=== PATIENT | male | born 1955 | race Caucasian/White ===

== ENCOUNTER → 2023-05-17 14:21 | Outpatient (REF) | payer MEDICARE, OTHER, SELFPAY | LOC: HWRAD 14:21 | PROVIDERS: ATTENDING PHYSICIAN Family Medicine | DX: E78.00 Pure hypercholesterolemia, unspecified (principal); Z91.89 Other specified personal risk factors, not elsewhere classified | CPT/HCPCS: 75571 ==

== ENCOUNTER → 2023-12-20 13:06 | Outpatient (REF) | payer MEDICARE, OTHER, SELFPAY | LOC: RCS 13:06 | PROVIDERS: ATTENDING PHYSICIAN Internal Medicine; FAMILY PHYSICIAN Family Medicine | DX: R00.1 Bradycardia, unspecified (principal) | CPT/HCPCS: 93225; 93226 ==

== ENCOUNTER → 2023-12-28 16:09 | Outpatient (REF) | payer MEDICARE, OTHER, SELFPAY | LOC: RCS 16:09 | PROVIDERS: ATTENDING PHYSICIAN Internal Medicine; FAMILY PHYSICIAN Family Medicine | DX: R00.1 Bradycardia, unspecified (principal) | CPT/HCPCS: 93306 ==

== ENCOUNTER 2024-08-29 06:26 | Day surgery (SDC) | payer MEDICARE, OTHER, SELFPAY | END 2024-08-29 09:30 | disposition home or self-care (01) | LOC: GI 06:26 | PROVIDERS: ATTENDING PHYSICIAN Internal Medicine Gastroenterology | DX: K51.00 Ulcerative (chronic) pancolitis without complications (principal); K51.20 Ulcerative (chronic) proctitis without complications | CPT/HCPCS: 45380; 88305 ==

== ENCOUNTER 2024-10-31 10:03 | Inpatient (IN) | payer MEDICARE, OTHER, SELFPAY ==
[2024-10-31] VITALS (23 sets, daily range): BP systolic 91–156; BP diastolic 53–100; BMI 24.2; BMI 24.5
[2024-10-31 02:34] LABS: Hematocrit 45.2 % (39.0-52.0); Hemoglobin 15.8 g/dL (13.0-18.0); Mean Corp Hgb Conc. 35.0 g/dL (33.0-37.0); Mean Corpuscular Volume 97.4 fL (80.0-94.0); Nucleated Red Blood Cells % 0 % (-); Platelet Count 155 10^3/uL (130-400); Red Cell Dist. Width 14.3 % (11.5-14.5)
[2024-10-31 02:59] LABS: ALT (SGPT) 29 U/L (0-50); AST (SGOT) 30 U/L (17-59); Albumin 4.8 g/dl (3.5-5.0); Alkaline Phosphatase 94 U/L (38-126); Blood Urea Nitrogen 26 mg/dl (9-20); Calcium 9.7 mg/dl (8.4-10.2); Carbon Dioxide 25 mmol/L (22-30); Chloride 108 mmol/L (98-107); Glucose 133 mg/dl (70-99); Potassium 4.7 mmol/L (3.5-5.1); Sodium 141 mmol/L (135-145); Total Protein 7.5 g/dl (6.3-8.2); eGFR > 60.00
[2024-10-31 03:11] LABS: Troponin I 0.024 ng/ml
--- NOTE | 2024-10-31 04:58 | ED.GENMED ---
History of Present Illness
<Jessie Steen PA-C - Last Filed: 10/31/24 13:39>
General
Chief Complaint: Cardiac Symptoms
Source: patient
Exam Limitations: none
Time Seen by Provider: 10/31/24 04:27
Nursing documentation reviewed up to this point in time: agreed with
History of Present Illness
History of Present Illness:
Note:
CHIEF COMPLAINT(S)
Indigestion and elevated heart rate.
HISTORY OF PRESENT ILLNESS
The patient is a 69-year-old male with a history of controlled cholesterol and colitis. He presented with symptoms of indigestion and elevated heart rate. The patient reported feeling indigestion with some burning and burping, which he associated
with reflux. His usual blood pressure is 120/80 mm Hg, but he noted an increase recently, up to 138-140/82 mm Hg. The patient, who normally has bradycardia with resting heart rates around 42-44 beats per minute, is concerned about the recent
increase in heart rate. He mentioned a recent local steroid injection to his toe earlier in the day, which he speculated could be related to his symptoms. However, he was advised that this is unlikely to be the cause. A repeat EKG showed some
changes, including T wave inversions, and a detectable troponin level was noted although it was not significantly elevated. These findings raised concerns about a potential cardiac issue. It was decided to repeat the blood work and EKG to further
investigate this. The patient denies any current chest pain or shortness of breath.
PAST MEDICAL AND SURIGICAL HISTORY
1. Controlled cholesterol managed with a statin.
2. Colitis managed with sulfasalazine and mercaptopurine.
3. Has had a calcium scan indicating a score of 253 with some plaque formation.
CHRONIC MEDICAL CONDITIONS SIGNIFICANTLY AFFECTING CARE
1. Hypercholesterolemia.
2. Colitis.
FAMILY HISTORY
Both parents had pacemakers due to rhythm issues but no history of coronary artery disease.
SOCIAL HISTORY
- Alcohol: Consumes one to two drinks, two to three times a week
- Smoking: Denies smoking.
- Exercise: Minimal aerobic activity currently due to foot issues.
MEDICATIONS
1. Statin for hyperlipidemia.
2. Sulfasalazine for colitis.
3. Mercaptopurine (6-MP) for colitis.
REVIEW OF SYSTEMS
- Cardiovascular: Elevated heart rate, history of bradycardia, episodic elevated blood pressure.
- Gastrointestinal: Indigestion, burning sensation, frequent burping, reflux symptoms.
- Respiratory: Denies shortness of breath or chest pain.
PHYSICAL EXAM
General: Alert, no acute distress.
Skin: Warm, dry.
Head: Normocephalic, atraumatic.
Neck: Supple, trachea midline.
Eye Ears, nose, mouth and throat: Oral mucosa moist.
Cardiovascular: Normal peripheral perfusion, No edema. RRR no murmurs.
Respiratory: Respirations are non-labored.
Gastrointestinal: Abdomen nondistended
Back: Normal range of motion, Normal alignment.
Musculoskeletal: Normal range of motion, normal strength.
Neurological: Alert and oriented to person, place, time, and situation, No focal neurological deficit observed.
Psychiatric: Cooperative, appropriate mood & affect.
PROBLEM LIST
Acute:
1. Indigestion with elevated heart rate.
2. Abnormal EKG findings (T wave inversions) and detectable troponin level.
Chronic:
1. Hypercholesterolemia.
2. Colitis.
PLAN
1. Repeat EKG and blood work to monitor troponin levels.
2. Patient advised to follow up with turning machine operator helper to potentially reconsider blood pressure management.
3. Monitor symptoms and seek immediate care if chest discomfort or any new symptoms arise.
DIFFERENTIAL DIAGNOSIS
The Differential Diagnosis includes, in no particular order and is not limited to:
1. Gastroesophageal reflux disease (GERD).
2. Cardiac arrhythmia.
3. Myocardial ischemia.
4. Medication side effects.
5. Anxiety attack.
6. Pericarditis.
7. Aortic dissection.
8. Esophageal spasm.
9. Hypertensive emergency.
10. Gastritis.
EKG
My independent EKG interpretation is:
- Abnormalities: Concerns for lateral ischemia with T-wave inversions laterally and mild ST depression
- Repeat EKG Time: Not specified
- Rhythm: Rate 81 initial ecg, repeat sinus bradycardia rate [address] depressions
- [place]: Not specified
- Abnormalities: Right bundle branch block, previous changes no longer present
Disposition:
SUMMARY OF ENCOUNTER
A 69-year-old male presented to the emergency department with concerns of elevated heart rate and brief indigestion. He noted an episode of unusual hypertension for him. On examination, he was currently asymptomatic and without chest pain. An
initial EKG indicated potential ischemia, and the initial troponin level was 0.024 ng/mL. A repeat troponin level showed a delta of 0.033 ng/mL. Suspecting acute coronary syndrome, the findings were discussed with cardiology. The patient was seen by
the turning machine operator helper at the bedside and is likely to be taken to the supervisor laboratory later today. Management was initiated with heparin, aspirin, and topical nitroglycerin.
DISPOSITION
The patient is to undergo further intervention in the supervisor laboratory.
ASSESSMENT
Suspected acute coronary syndrome based on EKG findings and troponin levels.
EMERGENCY TREATMENTS ADMINISTERED
Heparin, aspirin, and topical nitroglycerin.
MANAGEMENT OF THE PATIENTS CARE WAS DISCUSSED WITH
Discussion with cardiology (Dr. Salas) regarding suspected acute coronary syndrome and further management.
INDEPENDENT REVIEW OF LABS AND INTERPRETATION OF TESTS
- My independent review of EKG shows concerning changes for ischemia.
- My independent review of cardiac biomarkers indicates initial troponin level of 0.024 ng/mL with a repeat delta of 0.033 ng/mL.
MEDICATION RECONCILIATION
- Heparin (administered)
- Aspirin (administered)
- Topical Nitroglycerin (administered)
MEDICAL DECISION MAKING
- Number and Complexity of Problems Addressed: Chronic conditions affecting care include hypercholesterolemia and colitis. Differential diagnosis includes acute coronary syndrome, myocardial ischemia, and potential cardiac arrhythmia.
- Data:
-Category 1: My independent interpretation of EKG indicates potential ischemia. Reviewed cardiac troponin levels with initial and repeat measurements provided.
-Category 3: Management discussions conducted with turning machine operator helper Dr. Salas regarding patients condition and further intervention in supervisor laboratory.
-Risk: Consideration of Admission/Observation: Escalation of care including potential admission for treatment of suspected acute coronary syndrome was considered, ensuring high-risk cardiac conditions are further evaluated and treated properly.
DIAGNOSIS
- Acute coronary syndrome, suspected (ICD-10: I20.0)
Phy Exam
<Jessie Steen PA-C - Last Filed: 10/31/24 13:39>
Physical Exam
Physical Exam:
see hpi
Course
<Jessie Steen PA-C - Last Filed: 10/31/24 13:39>
Orders/Labs/Results
Orders:
Orders
10/31/24 01:53
ECG [Electrocardiogram (*1)] Urgent
Reason for Study: Chest Pain
EKG- Treatment ONCE
10/31/24 02:11
Complete Blood Count/With Diff Urgent
Comprehensive Metabolic Panel Urgent
Troponin I Urgent
10/31/24 05:00
Electrocardiogram (*1) Urgent
Reason for Study: Chest Pain
10/31/24 05:14
Troponin I Urgent
10/31/24 Breakfast
NPO
Allow oral meds: Yes
Allow clear liquids: No
10/31/24 06:32
Heparin 4,000 units IV NOW STA
Nursing to Place Non Medication Order As Directed
Physician Order: PTT 6 hours after initial start of Heparin infusion
Above order entered?: Yes
10/31/24 06:45
Heparin 12062 Units/250 ml 25,000 units in 250 ml IV PER PROTOCOL
Weight to be used for heparin protocol in kilograms (kg):: 74.389
Protocol:: Cardiac Tx/Acute Coronary
PTT Goal Range to be used:: PTT 73 to 111 seconds
Order type:: Initial
INITIAL Infusion Dose (UNITS/KG/hr) & then follow protocol:: 12 units/kg/hr
Infusion Dose in UNITS/hr & then follow protocol (UNITS/hr):: 900
INFUSION RATE in mL/hr & then follow protocol (mL/hr):: 9
PTT less than or equal to 64 seconds:: Increase rate by 200 units/hr (+ 2 mL/hr)
PTT 64.1 to 72.9 seconds:: Increase rate by 100 units/hr (+ 1 mL/hr)
PTT 73 to 111 seconds:: Target Range. No change in rate.
PTT 111.1 to 130.9 seconds:: Decrease rate by 100 units/hr (- 1 mL/hr)
PTT 131 to 199.9 seconds:: HOLD for 1 hr. Then decrease rate by 200 units/hr (- 2 mL/hr)
PTT greater than or equal to 200 seconds:: HOLD for 2 hrs & Notify Provider. Then decrease by 200 units/hr (-
2 mL/hr)
Lab follow-up:: Each change, PTT q6h until 2 consecutive are therapeutic. Then PTT
daily.
10/31/24 06:58
PTT Urgent
Comment: Obtain baseline before beginning heparin infusion if not already collected
10/31/24 07:10
Aspirin Chewable [Low Strength Aspirin] 324 mg PO NOW STA
10/31/24 07:52
Nitroglycerin Ointment [Nitro-Bid] 1 inch TOPICAL NOW STA
10/31/24 08:34
Admit/Transfer Patient As Directed
Co-Sign Provider:
Level of Care: Inpatient admission
Assign to:: Telemetry
Physician / Group: Hospitalist
Diagnosis: ACS NSTEMI
Reason for Telemetry: Chest Pain syndromes
Date to Stop Telemetry: 11/02/24
Time to Stop Telemetry: 11:00
Reason for Hospitalization: NSTEMI
Expected length of stay greater than two midnights?: Yes
ELOS- Estimated Length of Stay in days: 3
I certify the patient meets the requirements for IP care: Yes
PRN Pain Medication Management As Directed
May give lesser potent ordered pain med per pt: Yes
preference::
Protocol:: Medication orders for pain may be administered in a
manner that supports deferring to patient preference
when the pt is:
- Requesting an ordered lesser potent pain medication.
Least to most potent pain medications are defined
as: acetaminophen < NSAID < tramadol < opioids
(morphine, oxycodone, hydromorphone).
- Requesting a lesser dose of the same medication IF
ORDERED.
- Requesting a less intrusive route of administration
if both routes are prescribed by the provider (PO <
IV).
10/31/24 08:36
Code Status As Directed
Resuscitation Status: Full Code
10/31/24 12:04
Electrocardiogram (*1) Q6H
Reason for Study: Chest Pain
Comment: at admission and Q3H for total of 3, to be done with each troponin
Troponin I Q6H
Comment: at admit & Q3H for 3 total including ED draws, obtain ECG with each level
Alprazolam [Xanax] 0.25 mg PO BIDPRN PRN anxiety
Escitalopram Oxalate [Lexapro] 10 mg PO DAILY
Rosuvastatin Calcium [Crestor] 5 mg PO DAILY
mesalamine See Dose Instructions PO DAILY
10/31/24 12:04
Echo 2D MMode Color/Doppler Routine
Reason for Study: chest pain
CARDIOLOGY CONSULT Routine
Consulting Provider: Juan Patterson
Was physician already notified: Yes
Glycohemoglobin (HgbA1c) Routine
Activity As Directed
Activity Level: As Tolerated
INT (Intravenous Needle Therapy) As Directed
Comment: maintain peripheral IV access
Intake/ Output As Directed
Frequency: Per unit guidelines
Vital Signs As Directed
Frequency: q4h
Weight As Directed
Frequency: Daily
10/31/24 13:00
PT/INR [Prothrombin Time] Urgent
Mercaptopurine [Purinethol] 25 mg PO DAILY
10/31/24 18:04
Electrocardiogram (*1) Q6H
Reason for Study: Chest Pain
Comment: at admission and Q3H for total of 3, to be done with each troponin
Troponin I Q6H
Comment: at admit & Q3H for 3 total including ED draws, obtain ECG with each level
11/01/24 06:00
Basic Metabolic Panel IN AM
Complete Blood Count/No Diff IN AM
11/02/24 11:00
DC Protocol for Telemetry ONCE
Abnormal Lab Results
10/31/24
02:11
RBC 4.64 L 10^6/uL
(4.70-6.10)
MCV 97.4 H fL
(80.0-94.0)
MCH 34.1 H pg
(27.0-31.0)
MPV 11.2 H fL
(7.4-10.4)
Absolute Neuts (auto) 8.1 H 10^3/uL
(1.4-6.5)
Absolute Lymphs (auto) 1.0 L 10^3/uL
(1.2-3.4)
Neutrophils % 84.8 H %
(42.2-75.2)
Lymphocytes % 10.1 L %
(20.5-51.1)
Chloride 108 H mmol/L
(98-107)
BUN 26 H mg/dl
(9-20)
Glucose 133 H mg/dl
(70-99)
10/31/24 02:11
10/31/24 02:11
Vital Signs
Initial and Last Documented VS:
Initial Vital Signs
Temp Pulse Resp BP Pulse Ox
97.7 F 84 20 154/98 96
10/31/24 02:02 10/31/24 02:02 10/31/24 02:02 10/31/24 02:02 10/31/24 02:02
Last Documented Vital Signs
Temp Pulse Resp BP Pulse Ox
97.7 F 49 13 91/62 98
10/31/24 02:02 10/31/24 13:02 10/31/24 12:45 10/31/24 12:00 10/31/24 13:02
<Marilyn Kirkpatrick, DO - Last Filed: 10/31/24 07:15>
Orders/Labs/Results
Orders:
Orders
10/31/24 01:53
ECG [Electrocardiogram (*1)] Urgent
Reason for Study: Chest Pain
EKG- Treatment ONCE
10/31/24 02:11
Complete Blood Count/With Diff Urgent
Comprehensive Metabolic Panel Urgent
Troponin I Urgent
10/31/24 05:00
Electrocardiogram (*1) Urgent
Reason for Study: Chest Pain
10/31/24 05:14
Troponin I Urgent
10/31/24 Breakfast
NPO
Allow oral meds: Yes
Allow clear liquids: No
10/31/24 06:32
Heparin 4,000 units IV NOW STA
Nursing to Place Non Medication Order As Directed
Physician Order: PTT 6 hours after initial start of Heparin infusion
Above order entered?: Yes
10/31/24 06:45
Heparin 86999 Units/250 ml 25,000 units in 250 ml IV PER PROTOCOL
Weight to be used for heparin protocol in kilograms (kg):: 74.389
Protocol:: Cardiac Tx/Acute Coronary
PTT Goal Range to be used:: PTT 73 to 111 seconds
Order type:: Initial
INITIAL Infusion Dose (UNITS/KG/hr) & then follow protocol:: 12 units/kg/hr
Infusion Dose in UNITS/hr & then follow protocol (UNITS/hr):: 900
INFUSION RATE in mL/hr & then follow protocol (mL/hr):: 9
PTT less than or equal to 64 seconds:: Increase rate by 200 units/hr (+ 2 mL/hr)
PTT 64.1 to 72.9 seconds:: Increase rate by 100 units/hr (+ 1 mL/hr)
PTT 73 to 111 seconds:: Target Range. No change in rate.
PTT 111.1 to 130.9 seconds:: Decrease rate by 100 units/hr (- 1 mL/hr)
PTT 131 to 199.9 seconds:: HOLD for 1 hr. Then decrease rate by 200 units/hr (- 2 mL/hr)
PTT greater than or equal to 200 seconds:: HOLD for 2 hrs & Notify Provider. Then decrease by 200 units/hr (-
2 mL/hr)
Lab follow-up:: Each change, PTT q6h until 2 consecutive are therapeutic. Then PTT
daily.
10/31/24 06:58
PTT Urgent
Comment: Obtain baseline before beginning heparin infusion if not already collected
10/31/24 07:10
Aspirin Chewable [Low Strength Aspirin] 324 mg PO NOW STA
10/31/24 07:52
Nitroglycerin Ointment [Nitro-Bid] 1 inch TOPICAL NOW STA
10/31/24 08:34
Admit/Transfer Patient As Directed
Co-Sign Provider:
Level of Care: Inpatient admission
Assign to:: Telemetry
Physician / Group: Hospitalist
Diagnosis: ACS NSTEMI
Reason for Telemetry: Chest Pain syndromes
Date to Stop Telemetry: 11/02/24
Time to Stop Telemetry: 11:00
Reason for Hospitalization: NSTEMI
Expected length of stay greater than two midnights?: Yes
ELOS- Estimated Length of Stay in days: 3
I certify the patient meets the requirements for IP care: Yes
PRN Pain Medication Management As Directed
May give lesser potent ordered pain med per pt: Yes
preference::
Protocol:: Medication orders for pain may be administered in a
manner that supports deferring to patient preference
when the pt is:
- Requesting an ordered lesser potent pain medication.
Least to most potent pain medications are defined
as: acetaminophen < NSAID < tramadol < opioids
(morphine, oxycodone, hydromorphone).
- Requesting a lesser dose of the same medication IF
ORDERED.
- Requesting a less intrusive route of administration
if both routes are prescribed by the provider (PO <
IV).
10/31/24 08:36
Code Status As Directed
Resuscitation Status: Full Code
10/31/24 12:04
Electrocardiogram (*1) Q6H
Reason for Study: Chest Pain
Comment: at admission and Q3H for total of 3, to be done with each troponin
Troponin I Q6H
Comment: at admit & Q3H for 3 total including ED draws, obtain ECG with each level
Alprazolam [Xanax] 0.25 mg PO BIDPRN PRN anxiety
Escitalopram Oxalate [Lexapro] 10 mg PO DAILY
Rosuvastatin Calcium [Crestor] 5 mg PO DAILY
mesalamine See Dose Instructions PO DAILY
10/31/24 12:04
Echo 2D MMode Color/Doppler Routine
Reason for Study: chest pain
CARDIOLOGY CONSULT Routine
Consulting Provider: Juan Patterson
Was physician already notified: Yes
Glycohemoglobin (HgbA1c) Routine
Activity As Directed
Activity Level: As Tolerated
INT (Intravenous Needle Therapy) As Directed
Comment: maintain peripheral IV access
Intake/ Output As Directed
Frequency: Per unit guidelines
Vital Signs As Directed
Frequency: q4h
Weight As Directed
Frequency: Daily
10/31/24 13:00
PT/INR [Prothrombin Time] Urgent
Mercaptopurine [Purinethol] 25 mg PO DAILY
10/31/24 18:04
Electrocardiogram (*1) Q6H
Reason for Study: Chest Pain
Comment: at admission and Q3H for total of 3, to be done with each troponin
Troponin I Q6H
Comment: at admit & Q3H for 3 total including ED draws, obtain ECG with each level
11/01/24 06:00
Basic Metabolic Panel IN AM
Complete Blood Count/No Diff IN AM
11/02/24 11:00
DC Protocol for Telemetry ONCE
Abnormal Lab Results
10/31/24
02:11
RBC 4.64 L 10^6/uL
(4.70-6.10)
MCV 97.4 H fL
(80.0-94.0)
MCH 34.1 H pg
(27.0-31.0)
MPV 11.2 H fL
(7.4-10.4)
Absolute Neuts (auto) 8.1 H 10^3/uL
(1.4-6.5)
Absolute Lymphs (auto) 1.0 L 10^3/uL
(1.2-3.4)
Neutrophils % 84.8 H %
(42.2-75.2)
Lymphocytes % 10.1 L %
(20.5-51.1)
Chloride 108 H mmol/L
(98-107)
BUN 26 H mg/dl
(9-20)
Glucose 133 H mg/dl
(70-99)
10/31/24 02:11
10/31/24 02:11
Vital Signs
Initial and Last Documented VS:
Initial Vital Signs
Temp Pulse Resp BP Pulse Ox
97.7 F 84 20 154/98 96
10/31/24 02:02 10/31/24 02:02 10/31/24 02:02 10/31/24 02:02 10/31/24 02:02
Last Documented Vital Signs
Temp Pulse Resp BP Pulse Ox
97.7 F 49 13 91/62 98
10/31/24 02:02 10/31/24 13:02 10/31/24 12:45 10/31/24 12:00 10/31/24 13:02
<Jessie Steen PA-C - Last Filed: 10/31/24 13:39>
*Pulse Oximetry
SaO2: 97
Oxygen Mode of Delivery: Room air
Patient hypoxic: no
*Critical Care Note
Total Time (30-74mins, 75-104mins- exclusive of procedures): Not Applicable
ED Attending Note
<Jessie Steen PA-C - Last Filed: 10/31/24 13:39>
-
Portions of this chart may have been created with voice recognition software.� Occasional wrong word or��sound alike� substitutions may have occurred due to the inherent limitations of voice recognition software.
<Marilyn Kirkpatrick DO - Last Filed: 10/31/24 07:15>
ED Attending Note
Patient seen and examined by attending physician: Yes
I performed a history and physical exam of patient and discussed management with resident, I reviewed resident's note and agree with documented findings and plan of care.: Yes
ED Attending Note:
69-year-old gentleman with history of high coronary calcium score, maintained on a statin, follows with Dr. Thapa. He presents with concerns for sudden onset of palpitations, feeling that his heart was beating rapidly accompanied with
'indigestion,' mild diaphoresis and elevated blood pressure with electronic blood pressure cuff showing elevated blood pressure 168/110 with heart rate of 148. He repeated blood pressure check and similar elevated BP and similar elevated heart rate
of 148. No history of similar episodes in the past. Prior to other than elevated coronary calcium score, no prior history of CAD.
Palpitations resolved just prior to arrival to the ED. He continued with very mild indigestion which promptly resolved shortly after arrival. He has remained comfortable and asymptomatic since then.
Initial EKG shows chronic right bundle branch block, 1 PVC but there is also note of flipped T waves and minimal ST depression anteriorly in V1/V2 that is new compared to previous EKG July 2019.
Initial labs drawn in triage are unremarkable save for troponin top normal at 0.024. No previous troponins to compare. Normal renal function.
69-year-old gentleman appears his stated age, bright and alert, pleasant, appears in no acute distress. is accompanying.
Heart is regular rate and rhythm.
Lungs are clear to auscultation. No respiratory distress.
Concern for tachyarrhythmia with acute coronary syndrome. Symptomatic accelerated hypertension.
Monitor continues to show normal sinus rhythm. No recurrent palpitations nor indigestion.
Repeat troponin has trended up slightly to 0.033.
Repeat EKG has now normalized to baseline.
Due to acute EKG changes, uptrend in troponin case discussed with cardiology. Will admit to hospitalist service, initiate IV heparin and plan for cardiology evaluation this morning. Will give 324 mg chewable aspirin.
Discharge Plan
Departure
Patient Disposition: Admit
Date of Disposition: 10/31/24
Time of Disposition: 07:03
Admit to: Telemetry
Presentation/result/management discussed w/ accepting MD/DO: Hospitalist
Patient with high blood pressure during this ER visit?: Yes
Condition: Fair
Discharge Problem:
Acute coronary syndrome
Interventions
Interventions:
*Risk Screen - Suicide Last Done: 10/31/24 02:02
*General Assessment Last Done: 10/31/24 04:25
*Neglect/Abuse Screening Last Done: 10/31/24 02:02
*ED- Fall Risk Assessment Last Done: 10/31/24 04:25
*ED COVID-19 Vaccine History Last Done: 10/31/24 04:25
ED- Pulmonary Assessment Last Done: 10/31/24 04:25
ED- Cardiac Assessment Last Done: 10/31/24 04:25
[2024-10-31 06:00] LABS: Troponin I 0.033 ng/ml
[2024-10-31] MEDS: HEPARIN 4000 UNITS IV (06:49)
[2024-10-31] MEDS: HEPARIN 25000 UNITS/250 ML IV (07:05)
[2024-10-31 07:27] LABS: APTT 30.9 Sec (23.4-35.0)
[2024-10-31] MEDS: LOW STRENGTH ASPIRIN 324 MG PO (07:35)
--- NOTE | 2024-10-31 08:01 | CON.CAR ---
Consultation
Consultation Request
Date/Time Consultation Requested: 10/31/24
Date/Time Consultation Performed: 10/31/2024
Requesting Provider: Dr. Patterson
Performing Provider: Dr. Kirkpatrick
Reason for Consultation: Chest pain
Medical History
-
Chief Complaint: Chest pain
History of Present Illness:
68-year-old male known to me in the outpatient setting with primarily asymptomatic bradycardia, hyperlipidemia, GERD, asthma, mild ISAI, family history of coronary artery disease, and anxiety/depression admitted with chest pain. The patient states
that he he had difficulty sleeping last night and he began to develop 'indigestion' symptoms and an elevated heart rate to 140s. While driving to the hospital, he developed associated diaphoresis. He denies shortness of breath, syncope, or lower
extremity swelling. His EKG in the ER showed new transient anterior T wave inversion in V1-V3. The patient was known to have an elevated coronary calcium score of 253 on 05/17/2023 (LAD 72, LCx 0, RCA 181).
Past Medical History
Past Medical History: GERD and Hypercholesterolemia
Past Surgical History: Orthopedic (Left knee arthroscopy, right rotator cuff surgery (2017), left shoulder rotator cuff repair (2019), ankle fracture repair) and Other (Groin hernia repair)
Social History
Tobacco: Non-Smoker
Alcohol: Occasional
Drug: None
Personal:
Living: With Family
Family History
Family History: CAD
Allergies / Home Medications
Allergy/AdvReac Type Severity Reaction Status Date / Time
meperidine Allergy Severe Nausea / Verified 10/31/24 02:05
Vomiting
�Medication �Instructions �Recorded �Confirmed �Type
rosuvastatin 5 mg tablet (Crestor) 5 mg PO DAILY 10/31/24 10/31/24 History
Review of Systems
-
History Source: Patient
All other systems: Negative unless noted
Physical Exam
Vital Signs
Temp Pulse Resp BP Pulse Ox
97.7 F 62 18 126/77 97
10/31/24 02:02 10/31/24 07:00 10/31/24 07:00 10/31/24 06:00 10/31/24 07:00
Lab Results
10/31/24 02:11
10/31/24 02:11
Troponin I 0.033 ng/ml D 10/31/24 05:14
Physical Exam
General: No Apparent Distress and Comfortable
HEENT: Normocephalic
Respiratory: Clear
Cardiac: S1/S2, Regular Rhythm and Murmur (02/20)
Breast: N/A
GI: Soft
Rectal: Deferred by Provider
Musculoskeletal: No Clubbing, No Cyanosis and No Edema
Skin: Warm and Dry
Neuro: AO x 3
Psych: Calm
Impression / Plan
-
68-year-old male known to me in the outpatient setting with primarily asymptomatic bradycardia, hyperlipidemia, GERD, asthma, mild ISAI, family history of coronary artery disease, and anxiety/depression admitted with chest pain. The patient states
that he he had difficulty sleeping last night and he began to develop 'indigestion' symptoms and an elevated heart rate to 140s. While driving to the hospital, he developed associated diaphoresis. He denies shortness of breath, syncope, or lower
extremity swelling. His EKG in the ER showed new transient anterior T wave inversion in V1-V3. The patient was known to have an elevated coronary calcium score of 253 on 05/17/2023 (LAD 72, LCx 0, RCA 181).
Chest pain:
- Notable risk factors for heart disease; concern for ACS.
- Patient given full dose aspirin in the ER.
- Patient was started on a heparin drip in the ER.
- Cardiac catheterization will be arranged for this morning; keep NPO.
- quality assurance monitor.
- On rosuvastatin as outpatient.
- Will place nitro patch.
- Will avoid beta-blockers secondary to baseline bradycardia.
- Check hemoglobin A1c in AM.
- Update echocardiogram.
- Further recommendations will be based upon cardiac catheterization findings.
Hypertension:
- New diagnosis for patient.
- Will optimize after cardiac catheterization; Nitropaste for now.
Hyperlipidemia:
- On rosuvastatin as outpatient.
- Check lipid panel in AM.
Data Reviewed
-
EKG: Report Reviewed by me (Sinus bradycardia 48 bpm)
Medical Tests (Nuc Med, Echo etc): Report Reviewed by me (Transthoracic echocardiogram (12/28/2023): LVEF 55-60%; trace aortic regurgitation.)
Labs: Labs Reviewed by me
--- NOTE | 2024-10-31 08:20 | HPS.HSE ---
Family Physician
-
Family Physician: Tanvir Meyers
Chief Complaint
-
Palpitations, indigestion, diaphoresis
History of Present Illness
69 year old male with history of ulcerative colitis, coronary artery disease (calcium score 253), hyperlipidemia, GERD, anxiety, asthma, who presents with sudden onset palpitation, indigestion, diaphoresis, elevated blood pressure (home reading
168/104), tachycardia (148 at home), and mild nausea. Patient states he usually runs bradycardic while asleep so tachycardia is very unusual for him. Symptoms started at 1:15 AM while he was at rest in bed. At the time he assumed it was anxiety and
took 0.25 mg of alprazolam which is prescribed as needed for anxiety. He had recent episode of blood in stool related to UC which resolved after treatment with sulfasalazine suppository. He also received cortisone joint injections right fifth MTP
yesterday morning. He denies prior history of chest pain, exercise intolerance, exertional dyspnea, or recent illness. He lives an active life. No recent history of aspirin use (avoids aspirin and NSAIDs due to ulcerative colitis). He is known to
ripening room hand Dr. Miller with CBC
Medical History
Past Medical History
Past Medical History: Reports Asthma, CAD, GERD, Hypercholesterolemia, Psychiatric (Anxiety) and Other (Ulcerative colitis)
Past Surgical History: Reports Orthopedic (Bilateral shoulder repair, right knee repair, inguinal hernia repair)
Social History
Tobacco: Non-smoker
Alcohol: Occasional
Drug: None
Personal:
Living: With Family
Family History
Family History: Other (Mother had A-fib and a pacemaker, father had pacemaker)
Allergies / Home Medications
Allergies reflects when Allergies were last updated in [facility].
Home Medications with original date entered in [facility]
Allergy/Medication List:
Allergies
Allergy/AdvReac Type Severity Reaction Status Date / Time
meperidine Allergy Severe Nausea / Verified 10/31/24 02:05
Vomiting
Home Medications
alprazolam 0.25 mg tablet (Xanax) 0.25 mg PO BIDPRN PRN anxiety 10/31/24
escitalopram oxalate 10 mg tablet (Lexapro) 10 mg PO DAILY 10/31/24
mercaptopurine 50 mg tablet 75 mg PO DAILY 10/31/24
mesalamine 1.2 gram tablet,delayed release 3.6 g PO DAILY 10/31/24
rosuvastatin 5 mg tablet (Crestor) 5 mg PO DAILY 10/31/24
Review of Systems
-
History Source: Patient
Constitutional: Denies Fever
Respiratory: Denies Cough or Trouble Breathing
Cardiac: Denies Chest Pain, Diaphoresis or Palpitations
Abdomen/GI: Reports Bloody Stools (Recent); Denies Abdominal Pain, Nausea, Diarrhea or Constipated
: Denies Dysuria, Difficulty Voiding or Bleeding
Neurological: Denies Dizzy or Headache
Physical Exam
Vital Signs
Vital Signs
Temp Pulse Resp BP Pulse Ox
97.7 F 71 18 156/100 98
10/31/24 02:02 10/31/24 08:15 10/31/24 08:15 10/31/24 08:00 10/31/24 08:15
Physical Exam
General: Well Developed, Well Nourished, No Apparent Distress, Comfortable and Conversant
HEENT: NormoCephalic, Anicteric and Moist mucous membranes
Respiratory: Clear and Non Labored Respirations; No Wheezes, Rales, Rhonchi or Crackles
Cardiac: S1/S2 and Regular Rhythm; No Murmur, Rub, Gallop, Peripheral Edema or Calf Tenderness
GI: Soft, Non Tender, Non Distended and Normal Bowel Sounds
Musculoskeletal: No Clubbing, No Cyanosis and No Edema
Skin: Warm and Dry
Neuro: Awake, Alert and Oriented
Psych: Calm
Laboratory Results
-
10/31/24 02:11
10/31/24 02:11
Laboratory Results
APTT 30.9 Sec (23.4-35.0) 10/31/24 06:58
Total Bilirubin 0.8 mg/dl (0.2-1.3) 10/31/24 02:11
AST 30 U/L (17-59) 10/31/24 02:11
ALT 29 U/L (0-50) 10/31/24 02:11
Alkaline Phosphatase 94 U/L (38-126) 10/31/24 02:11
Troponin I 0.033 ng/ml D 10/31/24 05:14
Impression/Plan
-
IMPRESSION:
69 year old male with history of ulcerative colitis, coronary artery disease (calcium score 253), hyperlipidemia, GERD, anxiety, asthma, who presents with ACS-NSTEMI
PLAN:
NSTEMI:
Troponins slow uptrend 0.024--> 0.033
Received Asp 324mg
Remains hemodynamically stable
-Admit to telemetry
-Trend trops and EKG
-Check echo
-Cardiology consult with CBC
-Continue heparin
-Keep n.p.o. for now pending cardiology eval anxiety:
Anxiety:
- Continue Lexapro, alprazolam as needed
Ulcerative colitis:
- Continue mesalamine
Asthma:
- Albuterol as needed
GERD
Hyperlipidemia:
- Continue rosuvastatin
CAD:
- Recent calcium score 253
diet: NPO
DVT ppx: on heparin drip
Code status: full code
[2024-10-31] MEDS: NITRO-BID 1 INCH TOPICAL (08:28)
--- NOTE | 2024-10-31 10:14 | CM ---
CM reviewed chart and met with pt and his at bedside in ED. Pt lives with his in 2 story home, 1 [address].
Independent in ADLs, personal care and ambulation at baseline. Has walker available at home but does not use it.
Confirms prescription coverage.
No hx VN or SNF.
PCP: Tanvir Meyers
Pharmacy: [facility]
Anticipate discharge home, no needs. CM will continue to follow for any discharge planning needs.
--- NOTE | 2024-10-31 11:20 | W.PN.UPDATE ---
Update Note
Progress Note Update
I saw and evaluated the patient. I reviewed the resident�s note and agree with findings and plan as documented in the resident�s note.
HPI: 69 year old male with history of ulcerative colitis, coronary artery disease (calcium score 253), hyperlipidemia, GERD, anxiety, asthma, who p/w palpitation, indigestion, diaphoresis, elevated blood pressure (home reading 168/104), tachycardia
(148 at home), and mild nausea. He denies to chest pain.
He is known to control tower operator Dr. Miller with CBC
A/P:
# Elevated troponin, admit for ACS, possible NSTEMI
Troponins 0.024 -> 0.033, cont to monitor
s/p full dose aspirin in the ER.
Patient was started with heparin drip
Plan for cardiac catheterization per control tower operator
Nitro patch per card
Avoid beta-blockers secondary to baseline bradycardia.
Check echocardiogram.
Card on board
# Hypertension, new diagnosis for patient.
# Hyperlipidemia
Cont rosuvastatin as outpatient
Follow lipid panel
# Anxiety
Continue Lexapro, alprazolam as needed
# Ulcerative colitis
Continue mesalamine
# Asthma
Albuterol as needed
# GERD
diet: NPO
DVT ppx: on heparin drip
Code status: full code
[2024-10-31] MEDS: CRESTOR PO (13:34)
[2024-10-31] MEDS: PURINETHOL PO ×2 (13:35)
[2024-10-31] MEDS: LEXAPRO PO (13:35)
[2024-10-31 13:50] LABS: INR 1.01; PT 13.6 Sec (11.4-14.6)
[2024-10-31 13:51] LABS: APTT 56.4 Sec (23.4-35.0)
[2024-10-31 14:05] LABS: Troponin I 0.041 ng/ml
[2024-10-31 14:44] LABS: Glycohemoglobin (HgbA1c) 5.2 % (4.0-5.6)
--- NOTE | 2024-10-31 15:54 | PTCARENOTE ---
Heparin gtt infusing at 11 ml/hr. Pt has no complaints CP/discomfort/sob at this time. Tele- SB w/ BBBC. HR 40-50s. Assessment completed as documented. Plan of care reviewed w/ pt and verbalizes understanding. Oriented pt to room. Currently in bed;
call le[facility]itt w/in reach.
--- NOTE | 2024-10-31 19:49 | ITS.CL.PN ---
[employer] - Procedure Note
Procedure
Procedure Note:
CARDIAC CATHETERIZATION REPORT
Date of Procedure: 10/31/2024
Referring: Dr. Juan Patterson MD
Indication: Acute coronary syndrome
PROCEDURE(S)
1. left heart catheterization
2. coronary angiography
ACCESS: 6F right radial artery (closure: radial band)
CATHETERS
1. 6F JR4
2. 6F JL3.5
MODERATE SEDATION: 25 minutes of moderate sedation was utilized. An independent medical director occupational health was present to assist with and help manage the patient's level of consciousness and physiologic status.
HEMODYNAMIC DATA
LV 98/0 (EDP 14) mmHg
AO 93/65 (mean 75) mmHg
CORONARY ANGIOGRAPHY
Dominance: Right
LM: Large, normal
LAD: Large vessel giving rise to a small branching D1 and large D2 before wrapping around the apex. There is slow flow but trivial luminal irregularities only.
LCx: Moderate caliber vessel giving rise to a moderate caliber high rising OM1, small OM 2, and small LPL branch. There are trivial luminal irregularities only.
RCA: Large vessel giving rise to a moderate caliber RPDA, small RPL1, moderate caliber RPL2, and moderate caliber RPL3. There are mild luminal irregularities only.
RADIATION: dose 360 mGy; DAP 25.3 Gy*cm2; fluoroscopy time 2.9 min
CONCLUSIONS
1. Normal LV filling pressure and no aortic stenosis
2. Nonobstructive coronary artery disease in a right dominant system
RECOMMENDATIONS
1. Primary prevention of coronary artery disease
2. Workup and treatment of tachyarrhythmia, the likely etiology of the patient's [place]
Copy to: Dr. Juan Patterson MD (automotive leasing sales representative); Dr. Tanvir Meyers MD (PCP)
Signed: Nicolas Bird MD, PhD
[2024-10-31 20:15] LABS: Troponin I 0.028 ng/ml
--- NOTE | 2024-10-31 22:44 | PTCARENOTE ---
Received patient at change of shift. SB on the monitor, HR in the 40s, no change from previous shift. R radial band removed as per protocol. R radial dressing CDI, no evidence of hematoma. No complaints from pt at this time, call leavitt within reach.
--- NOTE | 2024-11-01 02:43 | DOWNTIME ---
There was a [employer] Client [employer]astics Engineering Teacher Downtime on 11/01/2024 from 0100 to 11/01/2024 at 0215. Downtime documentation of patient's care, including medication administrations, has been reconciled in the electronic record per guidelines. Refer to the
patient's paper chart under the miscellaneous tab to see printed paper medication records and downtime forms.
[2024-11-01 03:03] VITALS: BP 101/66
[2024-11-01 03:12] VITALS: BMI 24.8
[2024-11-01 03:50] LABS: Hematocrit 36.8 % (39.0-52.0); Hemoglobin 12.6 g/dL (13.0-18.0); Mean Corp Hgb Conc. 34.2 g/dL (33.0-37.0); Mean Corpuscular Volume 97.4 fL (80.0-94.0); Platelet Count 133 10^3/uL (130-400); Red Cell Dist. Width 14.6 % (11.5-14.5)
[2024-11-01 04:08] LABS: Blood Urea Nitrogen 25 mg/dl (9-20); Calcium 8.6 mg/dl (8.4-10.2); Carbon Dioxide 25 mmol/L (22-30); Chloride 111 mmol/L (98-107); Estimated Creatinine Clearance 76 ml/min; Glucose 85 mg/dl (70-99); Potassium 4.1 mmol/L (3.5-5.1); Sodium 139 mmol/L (135-145); eGFR > 60.00
[2024-11-01 06:53] VITALS: BP 111/67
--- NOTE | 2024-11-01 08:50 | W.PN.HOSP.TC ---
Today's Communication/Plan
-
DC today if also cleared by card
Assessment / Plan
Assessment / Plan
HPI: 69 year old male with history of ulcerative colitis, coronary artery disease (calcium score 253), hyperlipidemia, GERD, anxiety, asthma, who p/w palpitation, indigestion, diaphoresis, elevated blood pressure (home reading 168/104), tachycardia
(148 at home), and mild nausea. He denies to chest pain.
He is known to curator herbarium Dr. Miller with CBC
A/P:
# Elevated troponin, ruled out ACS/NSTEMI
# non-ischemic myocardial injury
Troponins peaked at 0.041
s/p cardiac cath on admission 11/01: Nonobstructive coronary artery disease in a right dominant system
Echo unrevealin. Normal left ventricular systolic function. 2. Estimated ejection fraction 60 to 65%. 3. Trace aortic regurgitation. 4. When compared with the previous report 12/28/2023 there is no significant change.
Off heparin drip
Off Nitro patch per card
Avoid beta-blockers secondary to baseline bradycardia.
Card on board
# Hypertension, new diagnosis for patient.
Now BP on the low side
# Hyperlipidemia
Cont rosuvastatin
# Anxiety
Continue Lexapro, alprazolam as needed
# Ulcerative colitis
Continue mesalamine
# Asthma
Albuterol as needed
# GERD
Code status: full code
DW at bedside
Anticipated Discharge: Today
Subjective/Interval History
-
Date of Service: November 01, 2024
Objective Data
-
Labs:
Laboratory Results
11/01/24
03:08
WBC 5.5
Hgb 12.6 L D
Hct 36.8 L
Plt Count 133
Sodium 139
Potassium 4.1
Chloride 111 H
Carbon Dioxide 25
BUN 25 H
Creatinine 0.9
Glucose 85
Calcium 8.6
Vital Signs:
Vital Signs
Temp Pulse Resp BP Pulse Ox
37.0 C 42 20 101/66 97
11/01/24 06:52 11/01/24 06:00 11/01/24 06:52 11/01/24 03:03 11/01/24 06:52
I&O
10/31/24 11/01/24 11/02/24
06:59 06:59 06:59
Intake Total 200 / 200
Balance 200 / 200
Review of Systems
-
History Source: Patient
All other systems: Reviewed and negative
Physical Exam
-
General: Well Developed, Well Nourished, No Apparent Distress, Comfortable and Conversant; Negative Respiratory Distress
HEENT: Normocephalic, Atraumatic, Nose Appears Normal and Ears Appear Normal; Negative Oxygen
Respiratory: Clear to Auscultation and Non Labored Respirations; Negative Accessory Resp Muscle Use
Cardiac: Regular Rhythm and S1/S2
GI: Soft, Nontender, Nondistended and Normal Bowel Sounds
Skin: Warm and Dry
Neuro: Awake, Alert, Oriented and AO x 3
Psych: Calm and Intact Judgement/Insight
Data Reviewed
-
Medical Tests (Nuc Med, Echo etc): Report Reviewed by me (echo and cath report )
Labs: Labs Reviewed by me
--- NOTE | 2024-11-01 08:59 | W.PN.CD ---
Today's Communication / Plan
-
recommend 2 week monitor---office will mail to him
Recommend ppi trial and f.u with GI
ok to discharge from cardiac perspective
Impression / Plan
-
69-year-old male known to me in the outpatient setting with primarily asymptomatic bradycardia, hyperlipidemia, GERD, asthma, mild ISAI, family history of coronary artery disease, and anxiety/depression admitted with chest pain. The patient states
that he he had difficulty sleeping last night and he began to develop 'indigestion' symptoms and an elevated heart rate to 140s. While driving to the hospital, he developed associated diaphoresis. He denies shortness of breath, syncope, or lower
extremity swelling. His EKG in the ER showed new transient anterior T wave inversion in V1-V3. The patient was known to have an elevated coronary calcium score of 253 on 05/17/2023 (LAD 72, LCx 0, RCA 181).
Chest pain:
- trop pk 0.041--likely nonischemic myocardial injury in the setting of tachycardia
-cath without obstructive disease.
-report of tachycardia at the time of symptoms, and 'indigestion'
-he has GI fu in December with Dr Sasha reddy h.o UC/GERD
-recommend a trial of ppi and evaluation for tachyarrhythmias
Tachycardia:
-hr reported at `140, but 81 on arrival
-will arrange for op 2 week monitor.
Hypertension:
- No longer seen
-recommend home monitoring.
Hyperlipidemia:
- continue rosuvastatin
TTE:11/01/24
1. Normal left ventricular systolic function.
2. Estimated ejection fraction 60 to 65%.
3. Trace aortic regurgitation.
4. When compared with the previous report 12/28/2023 there is no significant change.
C: 11/01/24
ACCESS: 6F right radial artery (closure: radial band)
HEMODYNAMIC DATA
LV 98/0 (EDP 14) mmHg
AO 93/65 (mean 75) mmHg
CONCLUSIONS
1. Normal LV filling pressure and no aortic stenosis
2. Nonobstructive coronary artery disease in a right dominant system
Physical Exam
Vital Signs/Labs
Vital Signs
Temp Pulse Resp BP Pulse Ox
98.6 F 42 20 101/66 97
11/01/24 06:52 11/01/24 06:00 11/01/24 06:52 11/01/24 03:03 11/01/24 06:52
10/31/24 11/01/24 11/02/24
06:59 06:59 06:59
Actual Weight 164 lb 167 lb 15.876 oz
11/01/24 03:08
11/01/24 03:08
PT 13.6 Sec (11.4-14.6) 10/31/24 13:24
INR 1.01 10/31/24 13:24
APTT Cancelled 10/31/24 20:30
LAB Results
10/31/24 10/31/24 10/31/24
02:11 05:14 13:24
Troponin I 0.024 0.033 D 0.041 H*
10/31/24 10/31/24
18:04 19:39
Troponin I Cancelled 0.028 D
Physical Exam
Constitutional: No acute distress
Cardiovascular: Rhythm & rate is regular, Pedal edema is absent, JVD pressure is normal, Systolic murmur absent and Diastolic murmur absent
Respiratory: Respiratory effort normal, Lungs clear to auscul., Wheeze Absent, Crackles Absent, Rhonchi Absent and Labored respirations
Neuro/Psych: AO x 3
Data Reviewed
-
Date of Service: November 01, 2024
Medical Decision Making: Review of Case with other Provider (ok for discharge home)
EKG: Other (brief pSVT)
[2024-11-01] MEDS: PURINETHOL 25 MG PO (09:00)
[2024-11-01] MEDS: LEXAPRO 10 MG PO (09:00)
[2024-11-01] MEDS: CRESTOR 5 MG PO (09:00)
[2024-11-01] MEDS: PURINETHOL 50 MG PO (09:00)
--- NOTE | 2024-11-01 10:55 | PTCARENOTE ---
IV and tele removed. Discharge instructions reviewed w/ pt and verbalizes understanding. D/c to home.
--- NOTE | 2024-11-01 13:18 | W.DCSUMMARY ---
Discharge Summary
Discharge Data
Date of Admission: 10/31/24
Date of Discharge: 11/01/24
Total time spent discharging patient (in min): 40
-
Pending Results: No
Hospital Course
Principal Diagnosis:
Elevated troponin, ruled out ACS/NSTEMI
Non-ischemic myocardial injury
Chronic Diagnoses:�
Coronary artery disease (calcium score 253)
Hyperlipidemia, on Rosuvastatin
Anxiety, on Lexapro, alprazolam as needed
Ulcerative colitis, on mesalamine
Asthma, on Albuterol as needed
GERD
Consultations:�
Cardiology
Procedures:�
Cardiac cath on admission 11/01: non-obstructive coronary artery disease in a right dominant system
Clinical course:�
This is a 69 year old male with past medical history as stated above, who presented with palpitation, indigestion, diaphoresis, elevated blood pressure (home reading 168/104), tachycardia (148 at home), and mild nausea. He denied to chest pain. He
was admitted for ACS eval.
Problem 1:
Elevated troponin, ruled out ACS/NSTEMI.
Non-ischemic myocardial injury.
His Troponin peaked at 0.041.
He underwent cardiac cath on admission on 11/01 which showed nonobstructive coronary artery disease in a right dominant system.
His Echo was also unrevealin. Normal left ventricular systolic function. 2. Estimated ejection fraction 60 to 65%. 3. Trace aortic regurgitation. 4. When compared with the previous report 12/28/2023 there is no significant change.
His blood pressure also normalized while in the hospital.
He was cleared for discharge, and he can continue to follow-up with his chief wharfinger outpatient.
As for the rest of his medical problems, they were stable during his hospital stay.
Discharge Plan
-
Patient Disposition: Home (Routine Discharge)
Discharge Diagnosis/Procedures: chest pain (ruled out heart attack, cardiac catheterization showed no blocked vessel)
Condition: Good
Diet: As tolerated, Low Fat, Low Cholesterol and Low Sodium
Activity: As tolerated
Driving Restrictions: No driving for 24 hours
Stand Alone Forms: DC Instructions- Cath/EP Lab
Referrals:
Tanvir Meyers MD [Family Provider, Family Practice] - in less than 1 week
Shanika Berry CRNP [Specified Professional Personl, Cardiology] - 11/27/24 10:00 am
Prescriptions:
Continued
rosuvastatin [Crestor] 5 mg Tablet
5 mg PO DAILY
alprazolam [Xanax] 0.25 mg Tablet
0.25 mg PO BIDPRN PRN (Reason: anxiety)
mercaptopurine 50 mg Tablet
75 mg PO DAILY
escitalopram oxalate [Lexapro] 10 mg Tablet
10 mg PO DAILY
mesalamine 1.2 gram Tablet,Delayed Release (Dr/Ec)
3.6 g PO DAILY
Discharge Orders:
Discharge Patient (As Directed); Ordered 11/01/24
Ordered By: Janet Jeffrey
Care Plan Goals
Care Plan Goals:
Problem: Readiness for enhanced knowledge related to diagnosis and treatment plan
Goal: Understand your diagnosis and treatment plan needs, including medications if applicable.
Instructions: Know your diagnosis, underlying causes and treatment plan options, including medications if applicable. Consult with your health care team to learn about your diagnosis and treatment plan, including medications if applicable.
Discharge Date and Time
Discharge Date/Time: 11/01/24 10:52
Print Language: MALAYSIAN
== END 2024-11-01 10:52 | disposition home or self-care (01) | DRG 287 ==
LOC: IVU 10:03
PROVIDERS: Physician Assistant; Student in an Organized Health Care Education/Training Program; ADMITTING PHYSICIAN Internal Medicine; CONSULT PHYSICIAN Internal Medicine; EMERGENCY PHYSICIAN Emergency Medicine; FAMILY PHYSICIAN Family Medicine
PROC: 4A023N7 Measurement of Cardiac Sampling and Pressure, Left Heart, Percutaneous Approach (ICD-10-PCS; 2024-10-31)
PROC: B2111ZZ Fluoroscopy of Multiple Coronary Arteries using Low Osmolar Contrast (ICD-10-PCS; 2024-10-31)
DX: I25.10 Atherosclerotic heart disease of native coronary artery without angina pectoris (principal); K51.90 Ulcerative colitis, unspecified, without complications; I5A Non-ischemic myocardial injury (non-traumatic); K30 Functional dyspepsia; E78.00 Pure hypercholesterolemia, unspecified; I10 Essential (primary) hypertension; F41.9 Anxiety disorder, unspecified; G47.33 Obstructive sleep apnea (adult) (pediatric); K21.9 Gastro-esophageal reflux disease without esophagitis; I49.3 Ventricular premature depolarization; I45.10 Unspecified right bundle-branch block; J45.909 Unspecified asthma, uncomplicated; F32.A Depression, unspecified; Z82.49 Family history of ischemic heart disease and other diseases of the circulatory system; Z88.8 Allergy status to other drugs, medicaments and biological substances; Z79.899 Other long term (current) drug therapy
CPT/HCPCS: 80048; 80053; 83036; 84484; 85025; 85027; 85610; 85730; 93005; 93306; 96365; 96366; 99152; 99153; 99285; C1769; C1894; Q9967